=== PATIENT | female | born 2000 | race Caucasian/White ===

== ENCOUNTER 2021-01-14 06:00 | Emergency (ER) | payer SELFPAY ==
[~2021-01-14] VITALS: Ht 170.2 cm; Wt 120.0 kg
[2021-01-14 06:32] VITALS: BP 158/82
--- NOTE | 2021-01-14 06:47 | PHYS DOC ---
Past Medical History Past Medical History: No Pertinent History Past Surgical History: No Surgical History Smoking Status: Never Smoker Alcohol Use: None Drug Use: Marijuana General Adult EDM: Chief Complaint: BACK PAIN OR INJURY HPI: HPI: 20-year-old female with no past medical history presents to the emergency department for 1 month of upper right-sided back pain adjacent to her thoracic spine and scapula. She denies any trauma or injury to the area. She does not work at this time. Her pain feels like a dull pain. She states that sleeping makes the pain worse. She states the pain got worse today after she woke up from her sleep. The patient admits to nausea, vomiting; denies fever, chills, chest pain, shortness of breath, abdominal pain, urinary symptoms, cough, recent trauma, or any other complaints. Review of Systems: Review of Systems: ROS otherwise negative except for what was mentioned in HPI Heart Score: C/O Chest Pain: No Allergies: Allergies: Allergies Coded Allergies Type Severity Reaction Last Updated Verified Penicillins Allergy Intermediate 01/14/21 Yes Sulfa (Sulfonamide Antibiotics) Allergy Unknown 01/14/21 Yes Physical Exam: PE: Constitutional: No acute distress, non-toxic appearance. Morbidly obese HENT: Atraumatic, bilateral external ears normal, nose normal. Eyes: PERRLA, EOMI, conjunctiva normal, no discharge. Neck: Normal range of motion, supple, no stridor. Cardiovascular: Heart rate regular rhythm. 2+ radial pulses Lungs & Thorax: No respiratory distress, symmetrical expansion. Back: There is no CT or L spinal tenderness, there is no paravertebral tenderness, scapula is relatively nontender. Abdomen: Soft, no tenderness Skin: Warm, dry. Extremities: No tenderness, no cyanosis, ROM intact, no edema. Neurologic: Alert and oriented X 3, normal motor function, normal sensory function, no focal deficits noted. Non ataxic gait. GCS 15. Psychologic: Affect normal, judgment normal, mood normal. Current Patient Data: Labs: Laboratory Tests Test 01/14/21 07:45 Bedside Urine HCG, Qualitative Hcg negative (Negative) Vital Signs: Vital Signs Date Time Temp Pulse Resp B/P (MAP) Pulse Ox O2 Delivery O2 Flow Rate FiO2 01/14/21 06:32 97.6 73 18 158/82 (107) 99 Room Air 97.6 Radiology/Procedures: Radiology/Procedures: No airspace disease, infiltrates or consolidations, lung lee clear. No pneumothorax or pleural effusion. Cardiac silhouette within normal limits. No widening of mediastinum. No obvious free air seen. Impression: normal CXR. Interpreted by me, Jhony Gaspar D.O. Course & Med Decision Making: Course & Med Decision Making Benign examination, patient is fully ambulatory, she is not driving, she was given symptomatic treatment for musculoskeletal back pain and was discharged home to follow-up with return precautions discussed. My Orders - JHONY GASPAR DO Procedure Category Date Status Time Urine Test MAN 01/14/21 In Process 06:32 Chest Ap Only RAD 01/14/21 Resulted 06:43 Diazepam (Valium) PHA 01/14/21 Complete 08:00 Ketorolac 15mg Vial PHA 01/14/21 Complete (Toradol 15mg Vial) 08:00 Lidocaine PHA 01/14/21 Complete (700mg/Patch) 08:00 Departure Departure Impression: Primary Impression: Upper back pain on right side Disposition: HOME / SELF CARE / HOMELESS Condition: GOOD Referrals: NO PCP (PCP) Patient Instructions: Back Exercises, [id number], Back Injury Prevention, [id number], Back Pain in Additional Instructions: You were seen in the emergency department for back pain. Your pain could be musculoskeletal in nature and could be from a pulled or strained muscle. The pain should improve with NSAID medications (ibuprofen, Aleve, etc.), stretching, and light activity. You may also use Tylenol for your back pain (no more than 3000 mg per day). Take as directed by instructions. Do not take NSAID medications if you have kidney disease. Do not take Tylenol if you have liver disease. If it does not improve, you should follow up with a primary care doctor. - Use stretching and strengthening exercises at least twice per day, continue to complete physical activity such as walking, and alternate ice and heat (ie heating pad) to the area of pain. - Return to the Emergency Department should your symptoms worsen, or should you develop a fever, change in bowel or bladder habits, weakness or numbness in your lower extremities, inability to walk, or any concern you feel warrants further evaluation. - Take Aleve or Ibuprofen, and Tylenol as needed for your pain. - You may use over the counter lidocaine patches as needed for pain. - Avoid taking narcotic medications for back pain. - Follow up with your doctor within 1-2 weeks if your symptoms are not improving. JHONY GASPAR DO Jan 14, 2021 06:47
[2021-01-14] MEDS ORDERED: LIDOCAINE (700MG/PATCH) PATCH. TD ONE (08:00)
[2021-01-14] MEDS ORDERED: KETOROLAC 15 MG/ML VIAL. IM ONE (08:00)
[2021-01-14] MEDS ORDERED: diazePAM 5 MG TABLET PO ONE (08:00)
--- NOTE | 2021-01-14 08:04 | RAD ---
XR CHEST 1V History: Upper back pain. Comparison: None. Technique: AP radiograph of the chest. Findings: The lungs are adequately and symmetrically inflated. No airspace consolidation, pleural effusion or p neumothorax. The cardiomediastinal silhouette and pulmonary vasculature are within normal limits. No acute osseous abnormality. Soft tissues are unremarkable. Impression: 1. No acute cardiopulmonary process. Electronically signed by: Randell Perdomo MD (01/14/2021 8:01 AM) [id number]
== END 2021-01-14 08:38 | disposition home or self-care (01) ==
LOC: ER 06:00
DX: M54.6 Pain in thoracic spine (principal); M25.511 Pain in right shoulder; R07.89 Other chest pain; Z88.0 Allergy status to penicillin; Z88.2 Allergy status to sulfonamides
CPT/HCPCS: 71045; 81025; 96372; 99283; J1885